=== PATIENT | female | born 1985 | race Caucasian/White ===

== ENCOUNTER 2020-11-08 00:48 | Emergency (ER) | payer OTHER ==
[~2020-11-08] VITALS: Ht 162.6 cm; Wt 63.5 kg
[2020-11-08] MEDS ORDERED: CEPHALEXIN500 M1 PO (02:56)
[2020-11-08] MEDS ORDERED: KETO10TA2 PO (02:56)
[2020-11-08] MEDS ORDERED: MUPIROCIN22 GM TOP (02:56)
== END 2020-11-08 03:01 | disposition home or self-care (01) ==
LOC: ER 00:48
DX: S91.342A Puncture wound with foreign body, left foot, initial encounter (principal); W56.81XA Bitten by other nonvenomous marine animals, initial encounter; Y93.89 Activity, other specified; Y92.832 Beach as the place of occurrence of the external cause; Y99.8 Other external cause status